=== PATIENT | female | born 1995 | race Caucasian/White ===

== ENCOUNTER 2018-09-24 20:37 | Emergency (ER) | payer MEDICAID ==
[~2018-09-24] VITALS: Ht 162.6 cm; Wt 100.0 kg
[2018-09-24 20:56] VITALS: Ht 162.6 cm; Wt 100.0 kg
[2018-09-24] MEDS ORDERED: ZANTAC300 MG (20:57)
[2018-09-24 21:14] LABS: APPEARANCE CLEAR (CLEAR); BILIRUBIN NEGATIVE (NEGATIVE); COLOR STRAW (YELLOW); GLUCOSE NEGATIVE (NEGATIVE); KETONE NEGATIVE (NEGATIVE); NITRITE NEGATIVE (NEGATIVE); PROTEIN NEGATIVE (NEGATIVE); SPECIFIC GRAVITY 1.015 (1.005-1.020); UROBILINOGEN NORMAL (NORMAL)
[2018-09-24 21:18] LABS: BASOPHILS 0.5 % (0-2); EOSINOPHILS 2.6 % (0-7); HEMATOCRIT 39.7 % (36.0-48.0); HEMOGLOBIN 13.3 g/dL (12-16); IMMATURE GRANULOCYTES 0.1 % (0-5); LYMPHOCYTES 33.8 % (15-50); MCH 29.4 pg (26.0-34.0); MCHC 33.5 g/dL (31.0-37.0); MCV 87.6 fL (80.0-100.0); MEAN PLATELET VOLUME 9.4 fL (7.4-10.4); MONOCYTES 7.4 % (2-11); NEUTROPHILS 55.6 % (40-80); PLATELET COUNT 287 10x3/uL (130-400); RBC 4.53 10x6/uL (4.00-5.40); RDW 13.1 % (11.5-14.5)
[2018-09-24 21:22] LABS: HCG URINE NEGATIVE (NEGATIVE)
[2018-09-24 21:34] LABS: ALBUMIN 3.2 g/dL (3.4-5.0); ALKALINE PHOSPHATASE 92 U/L (46-116); ALT (SGPT) 42 U/L (10-68); AMYLASE - SERUM 44 U/L (25-115); BILIRUBIN - TOTAL 0.38 mg/dL (0.2-1.3); CALC OSMOLALITY 283 mosm/kg (275-300); CALCIUM 8.8 mg/dL (8.5-10.1); CARBON DIOXIDE 27.5 mmol/L (21.0-32.0); CHLORIDE - SERUM 109 mmol/L (98-107); CREATININE - SERUM 0.6 mg/dL (0.6-1.3); GLUCOSE 74 mg/dL (74-106); LIPASE 103 U/L (73-393); POTASSIUM - SERUM 3.4 mmol/L (3.5-5.1); SODIUM 144 mmol/L (136-145); UREA NITROGEN 8 mg/dL (7-18); eGFR NON AFRICAN AMERICAN > 90 mL/min (90-120)
[2018-09-24] MEDS ORDERED: PROTONIX20 MG PO (22:56)
[2018-09-24] MEDS ORDERED: CARAFATE1 G PO (22:56)
[2018-09-24 23:15] VITALS: BP 132/89
== END 2018-09-24 23:15 | disposition home or self-care (01) ==
LOC: D.ER 20:37
PROVIDERS: Emergency Medicine
DX: R10.9 Unspecified abdominal pain (principal)